=== PATIENT | female | born 1990 | race Caucasian/White ===

== ENCOUNTER 2020-03-19 16:31 | Outpatient (CLI) | payer MEDICAID | END 2020-03-19 16:32 | disposition home or self-care (01) | LOC: LAB.S 16:31 | PROVIDERS: ATTEND Nurse Practitioner Obstetrics & Gynecology | DX: N91.1 Secondary amenorrhea (principal) | CPT/HCPCS: 36415; 84702 ==

== ENCOUNTER 2020-03-22 16:02 | Outpatient (CLI) | payer MEDICAID | END 2020-03-22 16:03 | disposition home or self-care (01) | LOC: LAB.S 16:02 | PROVIDERS: ATTEND Nurse Practitioner Obstetrics & Gynecology | DX: N91.1 Secondary amenorrhea (principal) | CPT/HCPCS: 36415; 84702 ==

== ENCOUNTER 2020-03-25 13:34 | Outpatient (CLI) | payer MEDICAID | END 2020-03-25 13:35 | disposition home or self-care (01) | LOC: LAB.S 13:34 | PROVIDERS: ATTEND Nurse Practitioner Obstetrics & Gynecology | DX: N91.1 Secondary amenorrhea (principal) | CPT/HCPCS: 36415; 84702 ==

== ENCOUNTER 2020-04-09 14:33 | Emergency (ER) | payer MEDICAID ==
[2020-04-09 15:38] LABS: BILIRUBIN,URINE NEGATIVE (NEGATIVE); GLUCOSE, URINE (UA) NEGATIVE (NEGATIVE); KETONES,URINE (UA) NEGATIVE (NEGATIVE); LEUKOCYTE ESTERASE, URINE NEGATIVE (NEGATIVE); NITRITE,URINE NEGATIVE (NEGATIVE); OCCULT BLOOD,URINE SMALL (NEGATIVE); PH,URINE 6.5 PH (5.0-7.5); PROTEIN,URINE NEGATIVE (NEGATIVE); UROBILINOGEN,URINE 0.2 (NORMAL) E.U./dL (NORMAL)
[2020-04-09 15:41] LABS: CLARITY,URINE CLEAR (CLEAR); HCG UR QUAL NEGATIVE
[2020-04-09 15:46] LABS: BACTERIA,URINE Few /HPF (None Seen); RBC,URINE 0-5 /HPF (0-5); SQUAMOUS EPITHELIAL CELL,UR MOD Squamous (<= Few)
--- NOTE | 2020-04-09 16:12 | ED Physician Documentation ---
PD HPI FEMALE - Stated complaint Stated Complaint: FEMALE - Chief complaint Chief Complaint: UTI - History obtained from History obtained from: Patient - History of Present Illness Timing - onset: How many weeks ago (5) Timing - duration: Weeks (5) Timing - details: Gradual onset, Still present, Waxing and waning Associated symptoms: Pelvic pain, Vaginal bleeding, Other ( and nausea) Contributing factors: Other ( has vasectomy confirmed working, patient recalls prior with negative hcG.) Similar symptoms before: Diagnosis () Recently seen: Not recently seen - Additional information Additional information: 29-year-old female indicates that back in August she became when she was lactating and ended up having to get an at 15 weeks. She subsequen tly in January began to feel that she might be again and she developed some . This was closed when her due date would have been. She states that she has been sexually active with her who is had a vasectomy. They have recently checked on the vasectomy and it has been confirmed that it is working. She still feels that she is and wants a quantitative test done. She relates that she has had a faintly positive urine test within the last 3 weeks. Review of Systems Constitutional: denies: Fever Eyes: denies: Decreased vision Ears: denies: Ear pain Nose: denies: Congestion Throat: denies: Sore throat Cardiac: denies: Chest pain / pressure, Palpitations Respiratory: denies: Dyspnea GI: reports: Nausea. denies: Abdominal Pain, Vomiting : reports: Other (breast tenderness, and nausea). denies: Dysuria, Frequency Skin: denies: Rash Musculoskeletal: denies: Neck pain, Back pain, Extremity pain Neurologic: denies: Generalized weakness, Focal weakness, Numbness PD PAST MEDICAL HISTORY - Past Medical History Past Medical History: No - Past Surgical History Past Surgical History: No - Allergies Allergies/Adverse Reactions: Allergies Allergy/AdvReac Type Severity Reaction Status Date / Time No Known Drug Allergies Allergy Verified 04/09/20 14:45 - Social History Does the pt smoke?: No Smoking Status: Never smoker Does the pt drink ETOH?: No Does the pt have substance abuse?: No - Immunizations Immunizations are current?: Yes - POLST Patient has POLST: No PD ED PE NORMAL - Vitals Vital signs reviewed: Yes (hypertensive) - General General: Alert and oriented X 3, No acute distress, Well developed/nourished - HEENT HEENT: Atraumatic, PERRL, EOMI - Neck Neck: Supple, no meningeal sign - Cardiac Cardiac: RRR, No murmur - Respiratory Respiratory: No respiratory distress, Clear bilaterally - Abdomen Abdomen: Normal bowel sounds, Soft, Non tender, Non distended, No organomegaly - Back Back: No CVA TTP, No spinal TTP - Derm Derm: Normal color, Warm and dry, No rash - Extremities Extremities: No deformity, No edema - Neuro Neuro: Alert and oriented X 3, event marketing specialist 2-12 intact, No motor deficit, No sensory deficit, Normal speech Eye Opening: Spontaneous Motor: Obeys Commands Verbal: Oriented GCS Score: 15 - Psych Psych: Normal mood, Normal affect Results - Vitals Vitals: Vital Signs - 24 hr 04/09/20 14:42 Temperature 36.1 C L Heart Rate 90 Respiratory 18 Rate Blood Pressure 133/111 H O2 Saturation 99 Oxygen O2 Source Room air - Labs Labs: Laboratory Tests 04/09/20 04/09/20 04/09/20 15:24 15:24 15:44 HCG, Quant < 0.60 Urine Color YELLOW Urine Clarity CLEAR Urine pH 6.5 Ur Specific [place] 1.025 1.025 Urine Protein NEGATIVE Urine Glucose (UA) NEGATIVE Urine Ketones NEGATIVE Urine Occult Blood SMALL H Urine Nitrite NEGATIVE Urine Bilirubin NEGATIVE Urine Urobilinogen 0.2 (NORMAL) Ur Leukocyte Esterase NEGATIVE Urine RBC 0-5 Urine WBC 0-3 Ur Squamous Epith Cells MOD Squamous H Urine Bacteria Few Ur Microscopic Review INDICATED Urine Culture Comments NOT INDICATED Urine HCG, Qual NEGATIVE PD MEDICAL DECISION MAKING - ED course Complexity details: reviewed results, re-evaluated patient, considered differential, d/w patient ED course: 29-year-old female with thoughts that she might be has a negative urine test and a negative quantitative hCG. We did do a bedside ultrasound in addition and found a normal appearing uterus. Departure - Departure Disposition: 01 Home, Self Care Clinical Impression: Not currently Condition: Stable Instructions: Preg Body Changes Follow-Up: Devika Norman CNM, ACCOUNT INFORMATION CLERK [Primary Care Provider] - Comments: Today there is no evidence of . Follow-up with [facility] for further evaluation as needed.
[2020-04-09 16:49] VITALS: BP 132/77
== END 2020-04-09 16:48 | disposition home or self-care (01) ==
LOC: ED 14:33
DX: R10.2 Pelvic and perineal pain (principal); R11.0 Nausea; N93.9 Abnormal uterine and vaginal bleeding, unspecified; Z32.02 Encounter for pregnancy test, result negative
CPT/HCPCS: 36415; 81001; 81003; 81025; 84702; 87086; 99281; 99283

== ENCOUNTER 2020-04-13 14:36 | Outpatient (CLI) | payer MEDICAID ==
--- NOTE | 2020-04-13 17:41 | Ultrasound Report ---
PROCEDURE: Pelvic w/Transvaginal INDICATIONS: PELVIC PAIN TECHNIQUE: Real-time scanning was performed of the pelvic organs, with image documentation. Additional endovagi nal scanning was necessary due to incomplete visualization of the adnexal and endometrial structures by transabdominal scanning. COMPARISON: None. FINDINGS: Transabdominal scanning: Limited scanning through the kidneys shows no hydronephrosis. No pathologi c free abdominal or pelvic fluid. Endovaginal scanning: Uterus: Uterus is normal in size at 7.8 x 4.2 x 7.1 cm. The endometrium measures 8 mm in combined t hickness. Homogeneous uterine echotexture. Ovaries: Both ovaries are normal in appearance. Right ovary measures 4.0 x 1.6 x 2.6 cm. Right ovari an volume measures 8.5 mL. Left ovary measures 4.3 x 1.4 x 2.8 cm. Left ovarian volume measures 8.5 m L. There are less than 12 follicles bilaterally. No suspicious ovarian/adnexal mass lesions in either side. IMPRESSION: Normal sonographic evaluation of the pelvis. Reviewed by: George Mendoza MD on 04/13/2020 5:40 PM PDT Approved by: George Mendoza MD on 04/13/2020 5:40 PM PDT Station ID: [id number]
== END 2020-04-13 14:37 | disposition home or self-care (01) ==
LOC: DI 14:36
PROVIDERS: ATTEND Nurse Practitioner Obstetrics & Gynecology
DX: R10.2 Pelvic and perineal pain (principal); N92.6 Irregular menstruation, unspecified
CPT/HCPCS: 76830; 76856

== ENCOUNTER 2021-08-08 14:10 | Outpatient (CLI) | payer MEDICAID ==
[2021-08-08 20:03] LABS: BASOPHILS % (AUTO) 0.5 %; EOSINOPHILS # (AUTO) 0.1 10^3/uL (0.0-0.7); EOSINOPHILS % (AUTO) 1.6 %; HCT - HEMATOCRIT 37.9 % (37.0-47.0); HGB - HEMOGLOBIN 12.3 g/dL (12.0-16.0); LYMPHOCYTES # (AUTO) 2.8 10^3/uL (1.5-3.5); LYMPHOCYTES % (AUTO) 33.7 %; MEAN CORPUSCULAR HEMOGLOBIN 28.1 pg (27.0-31.0); MEAN CORPUSCULAR HGB CONC 32.5 g/dL (32.0-36.0); MEAN CORPUSCULAR VOLUME 86.5 fL (81.0-99.0); MEAN PLATELET VOLUME 11.5 fL (7.9-10.8); MONOCYTES # (AUTO) 0.5 10^3/uL (0.0-1.0); MONOCYTES % (AUTO) 6.5 %; NEUTROPHILS # (AUTO) 4.7 10^3/uL (1.5-6.6); NEUTROPHILS % (AUTO) 57.2 %; PLT - PLATELET COUNT 233 10^3/uL (130-450); RED BLOOD COUNT 4.38 10^6/uL (4.20-5.40); WHITE BLOOD COUNT 8.3 x10^3/uL (4.8-10.8)
[2021-08-08 20:18] LABS: ALBUMIN 4.1 g/dL (3.2-5.5); ALBUMIN/GLOBULIN RATIO 1.5 (1.0-2.2); BILIRUBIN,TOTAL 0.6 mg/dL (0.2-1.0); CREATININE 0.7 mg/dL (0.4-1.0); POTASSIUM 3.6 mmol/L (3.5-5.0); TOTAL PROTEIN 6.9 g/dL (6.7-8.2)
[2021-08-08 20:40] LABS: FOLATE 14.76 ng/mL (5.90 - >24.8)
== END 2021-08-08 14:11 | disposition home or self-care (01) ==
LOC: LAB.S 14:10
PROVIDERS: ATTEND Internal Medicine
DX: K90.9 Intestinal malabsorption, unspecified (principal)
CPT/HCPCS: 36415; 80053; 82306; 82607; 82746; 82784; 83516; 85025; 86255

== ENCOUNTER 2023-02-24 10:02 | Outpatient (CLI) | payer MEDICAID ==
--- NOTE | 2023-02-24 10:48 | XRAY Report ---
PROCEDURE: Foot 3 View RT INDICATIONS: RIGHT CRUZ'S NEUROMA TECHNIQUE: 3 weight-bearing views of the foot were acquired. COMPARISON: None. FINDINGS: Bones: No fractures or dislocations. No suspicious bony lesions. Soft tissues: In this patient with this given history, scrutiny is given to soft tissue masses of th e distal foot. None can be seen. IMPRESSION: No soft tissue masses are seen on these plain films. No acute bony abnormality. If it would be helpful for clinical management decision making, please consider a dedicated MRI of th e foot (without and with contrast) for further evaluation (assuming that there is no contraindication ). Reviewed by: Noe Guzman MD on 02/24/2023 9:46 AM ANTHONY Approved by: Noe Guzman MD on 02/24/2023 9:46 AM ANTHONY Station ID: [id number]
== END 2023-02-24 23:59 | disposition home or self-care (01) ==
LOC: DI.S 10:02
PROVIDERS: ATTEND Emergency Medicine
DX: G57.61 Lesion of plantar nerve, right lower limb (principal)

== ENCOUNTER 2023-02-24 11:11 | Emergency (ER) | payer MEDICAID ==
[2023-02-24 11:29] VITALS: BP 119/71; O2SAT 98
--- NOTE | 2023-02-24 11:59 | ED Physician Documentation ---
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 She went to the walk-in clinic and had x-rays done which were negative, advised to follow-up with PCP for consideration for MRI but presents to the emergency department requesting same. There was no specific trauma. She was not having trouble with her foot prior to a few days ago. PD PAST MEDICAL HISTORY - Past Medical History Past Medical History: No Cardiovascular: None Respiratory: None Neuro: None Endocrine/Autoimmune: None GI: None HEALTH AND SAFETY TRAINER: None : None HEENT: None Psych: None Musculoskeletal: None Derm: None - Past Surgical History Past Surgical History: No - Present Medications Home Medications: Ambulatory Orders Medication Instructions Recorded Confirmed Acyclovir 400 mg PO PRN PRN 02/24/23 02/24/23 - Allergies Allergies/Adverse Reactions: Allergies Allergy/AdvReac Type Severity Reaction Status Date / Time No Known Drug Allergies Allergy Verified 02/24/23 11:23 - Social History Does the pt smoke?: No Smoking Status: Never smoker Does the pt drink ETOH?: No Does the pt have substance abuse?: No - Immunizations Immunizations are current?: Yes - POLST Patient has POLST: No PD ED PE NORMAL - Vitals Vital signs reviewed: Yes - General General: Alert and oriented X 3, No acute distress - Extremities Extremities: Other (She has tenderness between the first and second metatarsals heads of the right foot, maybe a suggestion of a lump there, but very subtle. Tenderness between the mid metatarsals is more significant than it is in either of the metatarsals.) - Neuro Neuro: Alert and oriented X 3, Normal speech Results - Vitals Vitals: Vital Signs - 24 hr 02/24/23 11:24 Temperature 37.1 C Heart Rate 71 Respiratory 16 Rate Blood Pressure 119/71 O2 Saturation 98 Oxygen O2 Source Room air PD Medical Decision Making - ED course ED course: Previous x-ray reviewed and negative, discussed with patient no emergent condition necessitating MRI and placed in a fracture shoe and up on crutches pending follow-up. Departure - Departure Disposition: 01 Home, Self Care Clinical Impression: Right foot pain Condition: Good Record reviewed to determine appropriate education?: Yes Comments: As discussed, my suspicion is less for stress fracture since the tenderness seems to be more between your metatarsal heads than it is of the metatarsal heads. That said in the immediate future, reasonable to treat with immobilization and nonweightbearing out of an abundance of caution. A list of PCPs is attached to this form that you can start calling around on Sunday to consider nonemergent MRI. Return for new/worse symptoms. Forms: PCP List
== END 2023-02-24 12:12 | disposition home or self-care (01) ==
LOC: ED 11:11
DX: M79.671 Pain in right foot (principal)
CPT/HCPCS: 99282; 99283

== ENCOUNTER 2023-09-01 16:34 | Emergency (ER) | payer MEDICAID ==
--- NOTE | 2023-09-01 16:51 | ED Physician Documentation ---
PD HPI NVD - Stated complaint Stated Complaint: PARNELL/FATIGUE/NAUSEA/CHILLS - Chief complaint Chief Complaint: General - History obtained from History obtained from: Patient - History of Present Illness Timing - onset: Today, Last night Timing - details: Gradual onset, Still present Associated symptoms: Abdominal pain (cramping upper abd). No: Fever, Near syncope / syncope, Loss of appetite Contributing factors: Other (She is allergic to hops in beer and will get upset stomach nausea and sometimes itchiness related to it. She had a cider that was not supposed to have any hops and it but apparently did and started having a reaction a few hours later. She has continued into today with a feeling of tight in throat.). No: Bad food (not bad per se, but unusual.) Review of Systems Constitutional: denies: Fever, Chills PD PAST MEDICAL HISTORY - Past Medical History Cardiovascular: None Respiratory: None Neuro: None Endocrine/Autoimmune: None GI: None LEAF COVERER: None : None HEENT: None Psych: None Musculoskeletal: None Derm: None - Past Surgical History Past Surgical History: No /LEAF COVERER: Breast implants - Present Medications Home Medications: Ambulatory Orders Medication Instructions Recorded Confirmed EPINEPHrine [Epinephrine] 0.3 mg IJ ONCE PRN #1 each 09/01/23 dexAMETHasone [Decadron] 4 mg PO DAILY #5 tablet 09/01/23 - Allergies Allergies/Adverse Reactions: Allergies Allergy/AdvReac Type Severity Reaction Status Date / Time hops AdvReac Nausea Verified 09/01/23 16:44 - Social History Does the pt smoke?: No Smoking Status: Never smoker Does the pt drink ETOH?: Yes Does the pt have substance abuse?: No - Immunizations Immunizations are current?: Yes - POLST Patient has POLST: No PD ED PE NORMAL - Vitals Vital signs reviewed: Yes - General General: Alert and oriented X 3, Well developed/nourished - HEENT HEENT: Atraumatic, Pharynx benign (without edema.) - Abdomen Abdomen: Soft, Non tender. No: Normal bowel sounds (decreased) - Derm Derm: Normal color, Warm and dry Results - Vitals Vitals: Oxygen O2 Source Room air - Labs Labs: Laboratory Tests 09/01/23 09/01/23 09/01/23 16:55 16:55 17:08 WBC 5.5 RBC 4.77 Hgb 13.0 Hct 40.0 MCV 83.9 MCH 27.3 MCHC 32.5 RDW 12.8 Plt Count 191 MPV 10.5 Neut # (Auto) 4.4 Lymph # (Auto) 0.4 L [place] # (Auto) 0.6 Eos # (Auto) 0.0 Baso # (Auto) 0.0 Absolute Nucleated RBC 0.00 Nucleated RBC % 0.0 Sodium Potassium Chloride Carbon Dioxide Anion Gap BUN Creatinine Estimated GFR (MDRD) Glucose Calcium Total Bilirubin AST ALT Alkaline Phosphatase Total Protein Albumin Globulin Albumin/Globulin Ratio Lipase Urine Color LIGHT YELLOW Urine Clarity CLEAR Urine pH 6.5 Ur Specific [place] 1.010 Urine Protein NEGATIVE Urine Glucose (UA) NEGATIVE Urine Ketones 40 H Urine Occult Blood TRACE-LYSE Urine Nitrite NEGATIVE Urine Bilirubin NEGATIVE Urine Urobilinogen 0.2 (NORMAL) Ur Leukocyte Esterase NEGATIVE Ur Microscopic Review NOT INDICATED Urine Culture Comments NOT INDICATED Urine HCG, Qual NEGATIVE 09/01/23 17:08 WBC RBC Hgb Hct MCV MCH MCHC RDW Plt Count MPV Neut # (Auto) Lymph # (Auto) [place] # (Auto) Eos # (Auto) Baso # (Auto) Absolute Nucleated RBC Nucleated RBC % Sodium 137 Potassium 3.9 Chloride 103 Carbon Dioxide 25 Anion Gap 9.0 BUN 8 Creatinine 0.8 Estimated GFR (MDRD) 82 L Glucose 99 Calcium 9.8 Total Bilirubin 0.5 AST 14 ALT 12 Alkaline Phosphatase 39 L Total Protein 7.5 Albumin 4.7 Globulin 2.8 Albumin/Globulin Ratio 1.7 Lipase < 10 L Urine Color Urine Clarity Urine pH Ur Specific [place] Urine Protein Urine Glucose (UA) Urine Ketones Urine Occult Blood Urine Nitrite Urine Bilirubin Urine Urobilinogen Ur Leukocyte Esterase Ur Microscopic Review Urine Culture Comments Urine HCG, Qual PD Medical Decision Making - ED course Complexity details: re-evaluated patient (improved with fluids and benadryl. Given decadron as well. ), considered differential (symptoms similar to prior hops ingestion. Had cider that was not supposed to have hops (usually only beers have that). Found out it did have some after drinking it. Has GI symptoms and general. No angioedema nor hives. Improved with Benadryl IV and fluids here. ), d/w patient Departure - Departure Disposition: 01 Home, Self Care Clinical Impression: Allergic reaction to food Condition: Stable Record reviewed to determine appropriate education?: Yes Instructions: ED Anaphylaxis General, ED Allergic React Food Prescriptions: dexAMETHasone [Decadron] 4 mg PO DAILY #5 tablet EPINEPHrine [Epinephrine] 0.3 mg IJ ONCE PRN #1 each PRN Reason: Anaphylaxis Comments: Your blood tests of your blood count and chemistry panel, which includes electrolytes, blood sugar, kidney function and liver function as well as lipase for pancreas, are normal. Presume the upper abdominal tenderness relates more to the stomach itself. There commonly is a increase in stomach acid release related to histamine as part of allergic reaction. You could use some antacids such as Maalox and [place] or such if needed. Otherwise it does sound like an allergic reaction. Of concern was the tightness in swelling feeling in the throat. With that, I am prescribing a EpiPen self injector in case you have a more serious reaction that occurs more promptly and needs attention faster. Over the next couple of days he may consider some antihistamines such as cetirizine/Zyrtec twice daily for a few days. Add Benadryl every 4-6 hours if needed for stronger antihistamine effect. If you find your symptoms lingering a little bit into tomorrow, then I would suggest continuing the steroids for a few more days as well. I printed out your prescriptions. Return as needed. Forms: PCP List Discharge Date/Time: 09/01/23 19:09
[2023-09-01 17:09] LABS: BILIRUBIN,URINE NEGATIVE (NEGATIVE); GLUCOSE, URINE (UA) NEGATIVE (NEGATIVE); KETONES,URINE (UA) 40 mg/dL (NEGATIVE); LEUKOCYTE ESTERASE, URINE NEGATIVE (NEGATIVE); NITRITE,URINE NEGATIVE (NEGATIVE); OCCULT BLOOD,URINE TRACE-LYSE (NEGATIVE); PH,URINE 6.5 PH (5.0-7.5); PROTEIN,URINE NEGATIVE (NEGATIVE); UROBILINOGEN,URINE 0.2 (NORMAL) E.U./dL (NORMAL)
[2023-09-01 17:11] LABS: CLARITY,URINE CLEAR (CLEAR)
[2023-09-01 17:12] LABS: HCG UR QUAL NEGATIVE
[2023-09-01 17:13] LABS: BASOPHILS % (AUTO) 0.4 %; LYMPHOCYTES # (AUTO) 0.4 10^3/uL (1.5-3.5); LYMPHOCYTES % (AUTO) 7.3 %; MEAN CORPUSCULAR HEMOGLOBIN 27.3 pg (27.0-31.0); MEAN CORPUSCULAR HGB CONC 32.5 g/dL (32.0-36.0); MEAN CORPUSCULAR VOLUME 83.9 fL (81.0-99.0); MEAN PLATELET VOLUME 10.5 fL (7.9-10.8); MONOCYTES # (AUTO) 0.6 10^3/uL (0.0-1.0); MONOCYTES % (AUTO) 10.9 %; NEUTROPHILS # (AUTO) 4.4 10^3/uL (1.5-6.6); NEUTROPHILS % (AUTO) 80.7 %; PLT - PLATELET COUNT 191 10^3/uL (130-450); RED BLOOD COUNT 4.77 10^6/uL (4.20-5.40); RED CELL DISTRIBUTION WIDTH 12.8 % (12.0-15.0); WHITE BLOOD COUNT 5.5 x10^3/uL (4.8-10.8)
[2023-09-01 17:37] LABS: ALBUMIN 4.7 g/dL (3.2-5.5); ALBUMIN/GLOBULIN RATIO 1.7 (1.0-2.2); ALKALINE PHOSPHATASE 39 IU/L (42-121); ALT ALANINE AMINOTRANSFERASE 12 IU/L (10-60); AST ASPARTATE AMINOTRANSFERASE 14 IU/L (10-42); BILIRUBIN,TOTAL 0.5 mg/dL (0.2-1.0); BUN - BLOOD UREA NITROGEN 8 mg/dL (6-20); CALCIUM 9.8 mg/dL (8.5-10.3); CARBON DIOXIDE - CO2 25 mmol/L (21-32); CHLORIDE 103 mmol/L (101-111); CREATININE 0.8 mg/dL (0.6-1.3); GFR - MDRD 82 (>89); GLUCOSE 99 mg/dL (74-104); LIPASE < 10 U/L (11-82); POTASSIUM 3.9 mmol/L (3.5-4.5); SODIUM 137 mmol/L (135-145); TOTAL PROTEIN 7.5 g/dL (6.4-8.9)
[2023-09-01] MEDS: SODIUM CHLORIDE 0.9% 1,000 ML IV STA (17:43)
[2023-09-01] MEDS: ONDANSETRON 4 MG/2 ML VIAL IVP STA (17:46)
[2023-09-01] MEDS: diphenhydrAMINE INJ 50 MG/ML VIAL IVP STA (17:47)
[2023-09-01] MEDS: DEXAMETHASONE 10 MG/ML VIAL IVP STA (17:50)
[2023-09-01] MEDS: KETOROLAC 15 MG/ML VIAL IVP STA (17:50)
[2023-09-01 18:01] VITALS: O2SAT 99
[2023-09-01 19:12] VITALS: BP 122/74
== END 2023-09-01 19:09 | disposition home or self-care (01) ==
LOC: ED 16:34
DX: T78.1XXA Other adverse food reactions, not elsewhere classified, initial encounter (principal); R11.0 Nausea; X58.XXXA Exposure to other specified factors, initial encounter; Z98.82 Breast implant status
CPT/HCPCS: 36415; 80053; 81003; 81025; 83690; 85025; 96374; 96375; 99283; 99284; J1200; 81001; 87086